=== PATIENT | female | born 1975 | race Caucasian/White ===

== ENCOUNTER → 2022-07-25 16:21 | Outpatient (BNVA) | payer MEDICAID, SELFPAY | PROVIDERS: Visit Provider Nurse Practitioner Family | DX: G47.9 Sleep disorder, unspecified (principal); R63.5 Abnormal weight gain; Z13.6 Encounter for screening for cardiovascular disorders | CPT/HCPCS: 80053; 80061; 84443; 85025 ==

== ENCOUNTER → 2023-03-12 13:45 | Outpatient (BNVA) | payer MEDICAID, SELFPAY | PROVIDERS: Visit Provider Nurse Practitioner Family | DX: E78.1 Pure hyperglyceridemia | CPT/HCPCS: 80053; 80061; 84443; 85025 ==